=== PATIENT | female | born 1950 | race Caucasian/White ===

== ENCOUNTER 2020-02-17 09:59 | Day surgery (SDC) | payer MEDICARE ==
[~2020-02-17] VITALS: Ht 152.4 cm; Wt 54.0 kg
[~2020-02-17 09:59] MED LIST: ACET325 PO; ALBU90OI; ALBU90OI INH; ALBU90OI6 INH; ALEN70 PO; ALPR.5 PO; ARIP10 PO; ASPI325 PO; ASPI81EC PO; ATOM25 PO; ATOR40TA PO; Abilify5 MG; Aspirin EC81 MG; BUDE10.22 INH; BUPR150T2 PO; BUTRANS1 EAC1; CARV25 PO; CARV3.125 PO; CLON1 PO; CLOP75 PO; DOCU100 PO; DULO30 PO; Estropipate0.75 MG PO; FERR325 PO; FURO20; FURO20 PO; HYDCHL25 PO; HYDROCODONE PO; Hydrochloroth12.5 MG PO; Hydrocodone-Ap1 EA20 PO; LAMO100; LOSA25 PO; MECL25 PO; META800; META800 PO; METPHE10; METPHE20; MULVITMINF; Norco 10-325 T1 EACH PO; OMEP40CA12 PO; ONDA4 PO; OXYC5 PO; PANT40; PANT40 PO; PARO30; PARO30 PO; POTA10T; Protonix40 MG PO; ROXICODONE5 MG PO; SENN187 PO; SPIR25 PO; ZOLP10 PO
--- NOTE | 2020-02-17 13:10 | NUR ---
02/17/20 1310 Kandis Keyes PT. CRYING WHEN WOKE UP FROM PROCEDURE. PT. WORRIED OF WHAT FOUND. TALKED WITH PT. & PT. MUCH HAPPIER.
== END 2020-02-17 12:45 | disposition home or self-care (01) ==
LOC: ORSCSDS 09:59
PROVIDERS: Internal Medicine Gastroenterology
PROC: 0DBE8ZX Excision of Large Intestine, Via Natural or Artificial Opening Endoscopic, Diagnostic (ICD-10-PCS; principal; 2020-02-17 11:15)
DX: R19.7 Diarrhea, unspecified (principal); R63.4 Abnormal weight loss; R11.2 Nausea with vomiting, unspecified; R93.3 Abnormal findings on diagnostic imaging of other parts of digestive tract; K57.30 Diverticulosis of large intestine without perforation or abscess without bleeding; K64.8 Other hemorrhoids; K64.4 Residual hemorrhoidal skin tags; I10 Essential (primary) hypertension; I25.10 Atherosclerotic heart disease of native coronary artery without angina pectoris; Z95.0 Presence of cardiac pacemaker; Z87.891 Personal history of nicotine dependence; Z79.899 Other long term (current) drug therapy
CPT/HCPCS: 88305; J2704; J7120

== ENCOUNTER 2021-02-12 11:37 | Emergency (ER) | payer MEDICARE ==
[~2021-02-12] VITALS: Ht 154.9 cm; Wt 54.4 kg
[~2021-02-12 11:37] MED LIST changes: +ATOR80 PO; +Aspirin EC81 MG PO; +CLON.5; +ENTRESTO 49 MG1 EACH PO; +METPHE20CR; +Prozac40 MG PO; +VITAMIN D325 MC3 PO; +Ventolin/Prove6.7 GM INH; +Vitamin B-Comp1 EACH PO
== END 2021-02-12 14:37 | disposition home or self-care (01) ==
LOC: ER 11:37
DX: R51.9 Headache, unspecified (principal); R11.0 Nausea; M54.5 Low back pain; Z79.82 Long term (current) use of aspirin; Z79.899 Other long term (current) drug therapy
CPT/HCPCS: 36415; 70450; 96374; 99284-25; A9270; J2765; J7030

== ENCOUNTER 2023-06-04 15:09 | Emergency (ER) | payer MEDICARE ==
[~2023-06-04] VITALS: Ht 154.9 cm; Wt 51.3 kg
[2023-06-04 16:00] LABS: BASOPHILS ABSOLUTE AUTO 0.05 K/mm3 (0.00-0.23); BASOPHILS PERCENT AUTO 1 % (0-2); EOSINOPHILS ABSOLUTE AUTO 0.23 K/mm3 (0.00-0.68); EOSINOPHILS PERCENT AUTO 3 % (0-6); Hematocrit 36.2 % (33.0-51.0); Hemoglobin 12.5 g/dL (11.5-16.0); IMMATURE GRAN ABSOLUTE AUTO 0.04 K/mm3 (0.00-0.10); IMMATURE GRAN PERCENT AUTO 1 % (0-1); LYMPHOCYTES ABSOLUTE AUTO 3.05 K/mm3 (0.84-5.20); LYMPHOCYTES PERCENT AUTO 39 % (21-46); MONOCYTES ABSOLUTE AUTO 0.56 K/mm3 (0.16-1.47); MONOCYTES PERCENT AUTO 7 % (4-13); Mean Corpuscular HGB 33.5 pg (26.0-34.0); Mean Corpuscular HGB Conc 34.5 g/dL (31.5-36.5); Mean Corpuscular Volume 97 fL (80-100); NEUTROPHILS ABSOLUTE AUTO 3.89 K/mm3 (1.96-9.15); NEUTROPHILS PERCENT AUTO 50 % (41-73); Platelet Count 360 K/mm3 (150-400); RDW Coefficient Variation 12.8 % (11.7-14.2); RDW Standard Deviation 45.8 fL (35.1-46.3); Red Blood Cell Count 3.73 M/mm3 (3.80-5.20); White Blood Cell Count 7.82 K/mm3 (4.00-11.30)
[2023-06-04 16:14] VITALS: BP 110/53
[2023-06-04 16:19] LABS: Albumin, Blood 3.7 g/dL (3.4-5.0); Albumin/Globulin Ratio 1.1 (0.8-1.8); Bilirubin, Total 0.3 mg/dL (0.1-1.0); Bun/Creatinine Ratio 16.2 (12.0-20.0); Creatinine, Blood 0.68 mg/dL (0.40-1.00); Globulin, Blood 3.4 g/dL (2.2-4.0); Total Protein, Blood 7.1 g/dL (6.4-8.2)
[2023-06-04] MEDS ORDERED: Norco 5-325 Ta1 EACH PO (16:27)
== END 2023-06-04 16:32 | disposition home or self-care (01) ==
LOC: ER 15:09
PROVIDERS: Student in an Organized Health Care Education/Training Program
DX: R07.81 Pleurodynia (principal); I50.9 Heart failure, unspecified; Z79.899 Other long term (current) drug therapy; Z79.82 Long term (current) use of aspirin; Z95.1 Presence of aortocoronary bypass graft
CPT/HCPCS: 71046; 80053; 83690; 85025; 93005; 93010; 99284-25

== ENCOUNTER 2023-10-15 16:00 | Emergency (ER) | payer MEDICARE ==
[~2023-10-15] VITALS: Ht 152.4 cm; Wt 51.3 kg
[~2023-10-15 16:00] MED LIST changes: +Norco 5-325 Ta1 EACH PO
[2023-10-15 16:26] VITALS: BP 126/77
== END 2023-10-15 16:58 | disposition left against medical advice (07) ==
LOC: ER 16:00
DX: R53.1 Weakness (principal); Z53.29 Procedure and treatment not carried out because of patient's decision for other reasons
CPT/HCPCS: 99281

== ENCOUNTER 2024-02-07 17:35 | Emergency (ER) | payer OTHER, MEDICARE ==
[~2024-02-07] VITALS: Ht 152.4 cm; Wt 52.2 kg
[2024-02-07 17:41] VITALS: BP 135/79
[2024-02-07] MEDS ORDERED: TraMADol HCl 50 MG Tab PO ONE (18:45)
[2024-02-07] MEDS ORDERED: Ultram50 MG PO (18:47)
== END 2024-02-07 19:04 | disposition home or self-care (01) ==
LOC: ER 17:35
DX: S09.90XA Unspecified injury of head, initial encounter (principal); M54.2 Cervicalgia; G89.29 Other chronic pain; W01.10XA Fall on same level from slipping, tripping and stumbling with subsequent striking against unspecified object, initial encounter; Z79.899 Other long term (current) drug therapy; Z79.82 Long term (current) use of aspirin; I50.9 Heart failure, unspecified
CPT/HCPCS: 70450; 72125; 73030; 99284-25; A9270

== ENCOUNTER 2025-02-03 09:08 | Day surgery (SDC) | payer MEDICARE ==
[~2025-02-03] VITALS: Ht 152.4 cm; Wt 52.4 kg
[~2025-02-03 09:08] MED LIST changes: +Balanced Salt Epinephrine Irrigation Solution 500 mL IR SCH; +Bentyl10 MG; +CARVEDILOL6.25 MG PO; +Diazepam 10 MG Tab ONE; +Diazepam 5 MG Tab PO PRN; +Diazepam 5 MG Tab PO SCH; +KLONOPIN0.5 M9 PO; +LAMOTRIGINE100 M1 PO; +Lidocaine HCl/Pf 1% 5 ML VIAL XX SCH; +METPHE20 PO; +Moxifloxacin HCL 0.5 MG/0.1 ML 0.4MLSYR RIGHTEYE SCH; +ONDANSETRON ODT 4 MG; +Ondansetron 4 MG SoluTab MM PRN; +PHENYLEPHRINE\\TROPICAMIDE\\TETRACAINE OPHTHALMIC DILATING SOLN RIGHTEYE PRN; +Povidone-Iodine 450 DROP/30 ML Solution ONE; +Povidone-Iodine 450 DROP/30 ML Solution RIGHTEYE SCH; +TRAZ50 PO; +Tetracaine HCl/Pf 0.5% Opth Soln 4 ml ONE; +Ultram50 MG PO; +Vitamin B Comple1 EA PO; +ZANAFLEX413 PO; +ZOLOFT10013 PO
--- NOTE | 2025-02-03 09:30 | NUR ---
02/03/25 0930 Tulio Orellana CALL LIGHT WITHIN REACH. ANXIETY LEVEL 09/05
--- NOTE | 2025-02-03 09:56 | NUR ---
02/03/25 0956 Heidi Banerjee 0952 BP 97/49, O2@ 96, HR 60, RESP 16
[2025-02-03 10:10] VITALS: BP 102/50
== END 2025-02-03 10:20 | disposition home or self-care (01) ==
LOC: ORSCSDS 09:08
PROVIDERS: Student in an Organized Health Care Education/Training Program
PROC: 08RJ3JZ Replacement of Right Lens with Synthetic Substitute, Percutaneous Approach (ICD-10-PCS; principal; 2025-02-03 10:30)
DX: H25.811 Combined forms of age-related cataract, right eye (principal); Z96.1 Presence of intraocular lens; F17.210 Nicotine dependence, cigarettes, uncomplicated; I25.10 Atherosclerotic heart disease of native coronary artery without angina pectoris; J44.9 Chronic obstructive pulmonary disease, unspecified; E78.5 Hyperlipidemia, unspecified; I51.9 Heart disease, unspecified; Z79.82 Long term (current) use of aspirin; Z79.899 Other long term (current) drug therapy
CPT/HCPCS: A9270; V2632

== ENCOUNTER 2025-05-13 08:21 | Day surgery (SDC) | payer MEDICARE ==
[~2025-05-13] VITALS: Ht 152.4 cm; Wt 51.6 kg
[~2025-05-13 08:21] MED LIST changes: -Balanced Salt Epinephrine Irrigation Solution 500 mL IR SCH; -Diazepam 10 MG Tab ONE; -Diazepam 5 MG Tab PO PRN; -Diazepam 5 MG Tab PO SCH; +ENTRESTO 49 MG1 EAC2; -Lidocaine HCl/Pf 1% 5 ML VIAL XX SCH; -Moxifloxacin HCL 0.5 MG/0.1 ML 0.4MLSYR RIGHTEYE SCH; -Ondansetron 4 MG SoluTab MM PRN; -PHENYLEPHRINE\\TROPICAMIDE\\TETRACAINE OPHTHALMIC DILATING SOLN RIGHTEYE PRN; -Povidone-Iodine 450 DROP/30 ML Solution ONE; -Povidone-Iodine 450 DROP/30 ML Solution RIGHTEYE SCH; -Tetracaine HCl/Pf 0.5% Opth Soln 4 ml ONE
[2025-05-13] MEDS ORDERED: ALBU8HFA2 (08:33)
[2025-05-13] MEDS ORDERED: LIDO700A20 (08:35)
--- NOTE | 2025-05-13 08:57 | NUR ---
05/13/25 0857 NEWTON MIX PT MIREYA ELAINE. END NOTE
[2025-05-13 10:32] VITALS: BP 99/49
== END 2025-05-13 10:20 | disposition home or self-care (01) ==
LOC: ORSCSDS 08:21
PROVIDERS: Specialist
PROC: 0DB98ZX Excision of Duodenum, Via Natural or Artificial Opening Endoscopic, Diagnostic (ICD-10-PCS; principal; 2025-05-13 09:30)
PROC: 0DB68ZX Excision of Stomach, Via Natural or Artificial Opening Endoscopic, Diagnostic (ICD-10-PCS; principal; 2025-05-13 09:30)
DX: R10.13 Epigastric pain (principal); R11.0 Nausea; K58.0 Irritable bowel syndrome with diarrhea; R14.0 Abdominal distension (gaseous); Z95.1 Presence of aortocoronary bypass graft; I25.10 Atherosclerotic heart disease of native coronary artery without angina pectoris; J44.9 Chronic obstructive pulmonary disease, unspecified; E78.5 Hyperlipidemia, unspecified; K21.9 Gastro-esophageal reflux disease without esophagitis; D50.9 Iron deficiency anemia, unspecified; F31.9 Bipolar disorder, unspecified; Z95.810 Presence of automatic (implantable) cardiac defibrillator; Z87.891 Personal history of nicotine dependence; Z79.82 Long term (current) use of aspirin; Z79.02 Long term (current) use of antithrombotics/antiplatelets; Z79.899 Other long term (current) drug therapy
CPT/HCPCS: 88305; 88341; 88342; J2704; J7120